=== PATIENT | female | born 1965 | race Caucasian/White ===

== ENCOUNTER 2016-10-25 22:54 | Emergency (ER) | payer BC ==
[~2016-10-25] VITALS: Ht 172.7 cm; Wt 69.9 kg
--- NOTE | 2016-10-25 23:00 | NUR ---
Seen patient in bed moderate simpson's position, c/o of vomiting, had multiple times (approximately 1 1/2 hr) prior to admission, does not feel throwing up at this time, c/o of upper epigastric pain 8-12/12, achy in description.last food intake is dinner: chicken w/ pasta sauce where she's the one who made, and some spinach. last BM was Tuesday10/22/16, pt stated that she had constipation since her ovaries was removed last march 2016, she's been taking miralax, some stool sofetener.
[2016-10-26] MEDS ORDERED: KETOROLAC TROMETHAMINE 15 MG INJ IV ONE
[2016-10-26] MEDS ORDERED: IV NORMAL SALINE 1000 ML BAG IV ONE
--- NOTE | 2016-10-26 | NUR ---
IV line inserted LFA g 20.
[2016-10-26 00:14] LABS: BASOPHILS % (AUTO) 0.5 % (0.0-2.0); EOSINOPHILS # (AUTO) 0.1 K/uL (0.0-0.7); EOSINOPHILS % (AUTO) 0.9 % (0.0-7.0); HEMATOCRIT 37.2 % (37-47); HEMOGLOBIN 13.1 G/DL (12.0-16.0); LYMPHOCYTES # (AUTO) 0.8 K/UL (0.8-4.8); LYMPHOCYTES % (AUTO) 11.4 % (20.5-51.5); MEAN CORPUSCULAR HEMOGLOBIN 34.2 UUG (27.0-31.0); MEAN CORPUSCULAR HGB CONC 35 g/dL (32.0-37.0); MEAN CORPUSCULAR VOLUME 96.9 FL (81.0-99.0); MONOCYTES # (AUTO) 0.3 K/UL (0.1-1.30); MONOCYTES % (AUTO) 3.5 % (0.0-11.0); NEUTROPHILS % (AUTO) 83.7 % (38.5-71.5); PLATELET COUNT (AUTO) 308 K/UL (150-450); RED BLOOD CELL COUNT(AUTO) 3.84 MIL/UL (4.2-5.4); WHITE BLOOD COUNT (AUTO) 7.2 K/UL (4.0-11.2)
--- NOTE | 2016-10-26 00:18 | NUR ---
Portable CXR done at the bedside. Left for CT via stretcher.
[2016-10-26] MEDS ORDERED: KETOROLAC TROMETHAMINE 15 MG INJ ONE (00:24)
[2016-10-26 00:25] LABS: POTASSIUM 3.7 mmol/L (3.5-5.1)
[2016-10-26 00:30] LABS: BILIRUBIN,DIRECT 0.1 mg/dL (0.0-0.2); BILIRUBIN,TOTAL 0.3 mg/dL (0.2-1.0); TOTAL PROTEIN, SERUM 7.6 g/dL (6.4-8.2)
[2016-10-26 00:33] LABS: *BILIRUBIN,URIN NEGATIVE (NEGATIVE); *BLOOD, URINE Trace-intact (NEGATIVE); *CLARITY,URINE CLEAR (CLEAR); *COLOR,URINE YELLOW (YELLOW); *KETONES,URINE NEGATIVE (NEGATIVE); *PROTEIN,URINE NEGATIVE (NEGATIVE); *UROBILINOGEN,URINE 0.2 E.U./dl (NORMAL); LEUKOCYTE ESTERASE ,URINE NEGATIVE (NEGATIVE); NITRITE, URINE NEGATIVE (NEGATIVE); PH,URINE 7.5 (5.0-8.0); UGLUCOSE NEGATIVE (NEGATIVE)
[2016-10-26 00:39] LABS: RBC,URINE 0-3 /HPF (0-3); WBC,URINE 0-3 /HPF (0-3)
[2016-10-26 00:40] LABS: BACTERIA,URINE NONE SEEN /HPF (NONE SEEN); SQUAMOUS EPITHELIAL CELL,UR FEW /HPF (NONE SEEN)
[2016-10-26] MEDS ORDERED: PALB75CA PO (00:40)
[2016-10-26] MEDS ORDERED: LETR2.5T PO (00:40)
--- NOTE | 2016-10-26 02:03 | NUR ---
Reassessed abdominal pain 05/14.Pt stated "I feel a lot better".Ambulated twice to restroom for urination.
--- NOTE | 2016-10-26 02:43 | NUR ---
Patient discharged to home in stable conditon. Written and verbal after care instructions given. Patient verbalizes understanding of instructions.
== END 2016-10-26 02:46 | disposition home or self-care (01) ==
LOC: ER 22:55
DX: K81.9 Cholecystitis, unspecified (principal); Z85.3 Personal history of malignant neoplasm of breast; Z88.0 Allergy status to penicillin; Z90.13 Acquired absence of bilateral breasts and nipples
CPT/HCPCS: 36415; 70030-TC; 71010; 83605; 83690; 85025; 87040; 93005; A4663; J1885; J7030